=== PATIENT | female | born 1975 | race Caucasian/White ===

== ENCOUNTER 2016-07-14 11:52 | Emergency (ER) ==
[2016-07-14 12:04] VITALS: BP 118/70
--- NOTE | 2016-07-14 12:26 | PROVIDER DOCUMENTATION ---
HPI-Musculoskeletal Pain/Inj - GENERAL Source: patient, family - HX OF PRESENT ILLNESS-MUSKULOSKELTAL Quality of Pain: reports: sharp, stabbing Severity in ED: severe Onset/Duration: 6 days ago Timing: getting worse Any recent injury?: No Locality of Occurance: Home Similar Symptoms Previously?: No Recently seen or treated by another doctor?: No <Benedict Johnston - Last Filed: 07/14/16 12:21> <Kaushal Tello - Last Filed: 07/14/16 12:30> - GENERAL Chief Complaint: Hip Pain Stated Complaint: HIP PAIN Time Seen by Provider: 07/14/16 12:21 - HX OF PRESENT ILLNESS-MUSKULOSKELTAL Nature of Presenting Problem: PT IS A 41 YOF THAT PRESENTS TO ER WITH CC OF LEFT LOWER BACK PAIN RADIATING TO LEFT POSTERIOR THIGH X WEDNESDAY REPORTS HAD SOME MOBIC AND WAS TAKING IT WITH NO RELIEF. DENIES ANY INJURIES/FALLS/ACCIDENTS. SHARP AND STABBING IN NATURE. (Benedict Johnston) Review of Systems - Adult - REVIEW OF SYSTEMS - ADULT Constitutional: denies: chills, fever, fatique Eyes: reports: no symptoms reported Ears, Nose, Mouth & Throat: reports: no symptoms reported Cardiovascular: denies: chest pain, irregular heart rate, orthopnea, syncope Respiratory: reports: no symptoms reported Gastrointestinal: reports: no symptoms reported Genitourinary: reports: no symptoms reported Musculoskeletal: reports: see HPI, back pain. denies: joint pain, joint swelling, neck pain Integumentary: reports: no symptoms reported Neurological: reports: no symptoms reported Psychiatric: reports: no symptoms reported Endocrine: reports: no symptoms reported Hematologic/Lymphatic: reports: no symptoms reported Allergic/Immunologic: reports: no symptoms reported All Other Systems: Reviewed and Negative <Benedict Johnston - Last Filed: 07/14/16 12:21> Past History - Adult - PAST MEDICAL HISTORY-ADULT Review of Records: reports: Nursing Assessment Review Major Childhood Illnesses: reports: denies history Cardiovascular: reports: denies history Respiratory: reports: denies history Gastrointestinal: reports: denies history Obstetrical/Gynecological: reports: denies history Genitourinary: reports: denies history Musculoskeletal: reports: denies history Neurological: reports: denies history Endocrine/Immune: reports: denies history Other Conditions: reports: denies history - PRIOR SURGERIES/PROCEDURES Surgical/Procedure History: reports: hysterectomy - PRIOR HOSPITALIZATIONS Prior Hospitalizations: reports: none - IMMUNIZATION STATUS Childhood Immunizations: UTD Flu Vaccine: See Nurse Assessment - FAMILY HISTORY Family History: reviewed, not pertinent - SOCIAL HISTORY Smoking: cigarettes, greater than 1 pack/day Provider spent 3-5 mins advising pt. on dangers of tobacco.: Discussed manners to quit use, and f/u contacts for add'l counseling. Substance Use: none/never <Benedict Johnston - Last Filed: 07/14/16 12:21> Physical Exam-Injury Related - Physical Exam-Injury Related Initial Vital Signs Reviewed: Yes General Appearance: appears well, alert, no apparent distress Eyes: PERRL/EOMI Neck: non-tender, full range of motion, supple, normal inspection. negative: pain with axial compression, C-spine tenderness Respiratory: chest non-tender, lungs clear, normal breath sounds, no pleuratic chest pain, no respiratory distress, no accessory muscle use Cardiovascular: regular rate, rhythm Peripheral Pulses: dorsalis-pedis (R): 2+, dorsalis-pedis (L): 2+ Abdominal Exam: normal bowel sounds, non tender, soft, no organomegaly, no pulsatile mass Back Exam: other (PAIN BENDING TO LEFT THAN RIGHT RADIATION TO SCIATIC NERVE BENDING TO LEFT. STRAIGHT LEG RAISE POSITIVE.) Extremity: normal range of motion, non-tender, normal gait Integumentary: normal color, warm/dry Psych/Mental Status: normal mood/affect, normal thought content, normal thought process, oriented x 3 - Glascow Coma Score Best Eye Response (Thee): (4) open spontaneously Best Verbal Response (Thee): (5) oriented Best Motor Response (Thee): (6) obeys commands Thee Total: 15 <Benedict Johnston - Last Filed: 07/14/16 12:21> Progress <Benedict Johnston - Last Filed: 07/14/16 12:21> <Kaushal Tello - Last Filed: 07/14/16 12:30> - PLAN OF CARE/RESULTS Progress/Plan/Lab Results: Vital Signs - 24 hr 07/14/16 12:01 Temperature 98 F Pulse Rate 83 Respiratory 18 Rate Blood Pressure 118/70 O2 Sat by Pulse 98 Oximetry (Benedict Johnston) Departure - Departure Time of Disposition Order: 12:25 Certified Medical Emergency: Emergent <Benedict Johnston - Last Filed: 07/14/16 12:21> - Departure Time of Disposition Order: 12:27 Certified Medical Emergency: Emergent <Kaushal Tello - Last Filed: 07/14/16 12:30> - Departure DIAGNOSIS: Lower back pain Qualifiers: Chronicity: acute Back pain laterality: left Sciatica presence: with sciatica Sciatica laterality: sciatica of left side Qualified Code(s): M54.42 - Lumbago with sciatica, left side Disposition: HOME 01 Condition: Stable Additional Instructions: FOLLOW UP WITH [facility] [place] SIMONS [phone] ED Follow Up Instructions: You have been treated by a care provider in the Emergency Department. These instructions are being provided to you so you can have an understanding of how to care for yourself upon discharge. Upon discharge from the Emergency Department, you are responsible for making arrangements for follow-up care by a physician of your choice. Take all prescribed medications as directed. Return to the Emergency Department immediately for any new or worsening symptoms. You may call the Physician Referral phone number at [phone] to obtain a list of Physicians who are taking new patients. Prescriptions: Naproxen 500 mg PO BID PRN PRN #60 tablet PRN Reason: Pain Methocarbamol [Robaxin-750] 750 mg PO BID PRN #60 tablet PRN Reason: muscle spasm Referrals: None,PCP [Primary Care Provider] - Attestation - Scribe Verification/Attestation Scribe:: Benedict Johnston Acting as Scribe for:: Kaushal Tello Scribe documention review:: This chart was documented by a scribe and accurately reflects the service the provider performed and the decisions made by the provider. <Benedict Johnston - Last Filed: 07/14/16 12:21> Physician Attestation
== END 2016-07-14 12:45 | disposition home or self-care (01) ==
LOC: P.ED 11:52
DX: M54.42 Lumbago with sciatica, left side (principal); M79.652 Pain in left thigh; F17.210 Nicotine dependence, cigarettes, uncomplicated; Z71.6 Tobacco abuse counseling
CPT/HCPCS: 99282